=== PATIENT | female | born 1965 | race Hispanic/Latino ===

== ENCOUNTER 2017-03-21 08:30 | Observation (INO) | payer OTHER ==
[2017-03-21] MEDS ORDERED: Sodium Chloride 0.9% 1,000 ML IV ONE (09:29)
[2017-03-21 09:49] LABS: BASO % 0.3 % (0.0-2.0); HEMOGLOBIN 15.4 g/dL (12.0-16.0); LYMPH # 0.9 K/uL (1.0-4.3); LYMPH % 7.7 % (20.0-40.0); MEAN CELL VOLUME 95.6 fl (81.0-99.0); MEAN CORPUSCULAR HEMOGLOBIN 32.9 pg (27.0-31.0); MEAN CORPUSCULAR HGB CONC 34.4 g/dL (33.0-37.0); MEAN PLATELET VOLUME 7.1 fl (7.2-11.7); MONO # 0.3 K/uL (0.0-0.8); MONO % 2.4 % (0.0-10.0); NEUT # 10.9 K/uL (1.8-7.0); NEUT % 89.6 % (50.0-75.0); NRBC % 0.1 % (0.0-0.0); PLATELET COUNT 222 K/uL (130-400); RBC 4.69 Mil/uL (3.80-5.20); RED CELL DISTRIBUTION WIDTH 12.7 % (11.5-14.5); WHITE BLOOD COUNT 12.1 K/uL (4.8-10.8)
[2017-03-21 10:08] LABS: ACETAMINOPHEN < 10.0 ug/ml (10.0-30.0); ALBUMIN 5.2 g/dL (3.5-5.0); ALT/SGPT 97 U/L (9-52); AST/SGOT 42 U/L (14-36); BLOOD UREA NITROGEN 17 mg/dl (7-17); CALCIUM 9.6 mg/dL (8.4-10.2); GFR AFRICAN-AMERICAN > 60; GFR NON-AFRICAN AMERICAN > 60; MAGNESIUM 2.8 MG/DL (1.6-2.3); SALICYLATE < 1.0 mg/dl
[2017-03-21 10:11] LABS: ALB/GLOB RATIO 1.6 (1.0-2.1)
[2017-03-21 10:47] LABS: SQUAMOUS EPITHIAL < 1 /hpf (0-5); URINE BILIRUBIN NEGATIVE (NEGATIVE); URINE BLOOD NEGATIVE (NEGATIVE); URINE CLARITY SLIGHTY-CLOUDY (Clear); URINE COLOR YELLOW (YELLOW); URINE GLUCOSE (UA) NEG (Normal); URINE LEUKOCYTE ESTERASE TRACE Leu/uL (Negative); URINE NITRATE NEGATIVE (NEGATIVE); URINE PROTEIN NEGATIVE (NEGATIVE); URINE UROBILINOGEN 0.2-1.0 mg/dL (0.2-1.0)
[2017-03-21 11:03] LABS: BARBITURATES, UR NEGATIVE (NEGATIVE); OPIATES, UR NEGATIVE (NEGATIVE); PHENCYCLIDINE, UR NEGATIVE (NEGATIVE)
--- NOTE | 2017-03-21 11:03 | CT ---
PROCEDURE: CT HEAD WITHOUT CONTRAST. HISTORY: trauma COMPARISON: None available. TECHNIQUE: Axial computed tomography images were obtained through the head/brain without intravenous contrast. Radiation dose: Total exam DLP = 873.81 mGy-cm. This CT exam was performed using one or more of the following dose reduction techniques: Automated exposure control, adjustment of the mA and/or kV according to patient size, and/or use of iterative reconstruction technique. FINDINGS: HEMORRHAGE: No intracranial hemorrhage. BRAIN: No mass effect or edema. No atrophy or chronic microvascular ischemic changes. VENTRICLES: Unremarkable. No hydrocephalus. CALVARIUM: Unremarkable. PARANASAL SINUSES: Mild chronic pansinusitis. MASTOID AIR CELLS: Unremarkable as visualized. No inflammatory changes. OTHER FINDINGS: None. IMPRESSION: No intracranial hemorrhage. Mild chronic pansinusitis. The remainder of the examination is unremarkable.
[2017-03-21 11:04] LABS: BENZODIAZEPINES, UR POSITIVE (NEGATIVE)
--- NOTE | 2017-03-21 11:10 | ED PDOC ---
HPI: Psych/Substance Abuse Time Seen by Provider: 03/21/17 08:41 Chief Complaint (Nursing): Psychiatric Evaluation History Per: Patient History/Exam Limitations: intoxication Onset/Duration Of Symptoms: Sudden Onset (last night) Current Symptoms Are (Timing): Still Present Suicide/Self Injury Attempted (Context): Ingestion (multiple doses or prozac and valium) Modifying Factor(s): Alcohol Severity: Moderate Associated Symptoms: Depression, Suicidal Thoughts, Suicidal Plan (od). denies : Anger, Anxiety, Agitation, Paranoia Involuntary Hold By: Emergency Physician Additional History Per: Patient Additional Complaint(s): Pt states she took overdose of several meds with alcohol last night. Pt admits to suicidal attempt. Pt states she fell last night, bruises noted on rt forehead and lt elbow. Past Medical History Reviewed: Historical Data, Nursing Documentation, Vital Signs Vital Signs: Last Vital Signs Temp 97 F L 03/21/17 08:39 Pulse 73 03/21/17 10:57 Resp 16 03/21/17 10:57 BP 121/67 03/21/17 10:57 Pulse Ox 98 03/21/17 10:57 - Medical History PMH: No Chronic Diseases - Surgical History Surgical History: No Surg Hx - Family History Family History: States: Unknown Family Hx - Living Arrangements Living Arrangements: With Family - Social History Current smoker - smoking cessation education provided: No Alcohol: > 2 Drinks/Day Drugs: Denies - Allergies Allergies/Adverse Reactions: Allergies Allergy/AdvReac Type Severity Reaction Status Date / Time Penicillins Allergy RASH Verified 03/21/17 08:38 Review of Systems ROS Statement: Except As Marked, All Systems Reviewed And Found Negative Constitutional: Negative for: Fever, Chills Cardiovascular: Negative for: Chest Pain, Palpitations Respiratory: Negative for: Cough, Shortness of Breath Gastrointestinal: Negative for: Nausea, Vomiting, Abdominal Pain Musculoskeletal: Negative for: Neck Pain Neurological: Negative for: Weakness, Numbness Physical Exam - Reviewed Nursing Documentation Reviewed: Yes Vital Signs Reviewed: Yes - Physical Exam Appears: Positive for: Uncomfortable Head Exam: Positive for: ATRAUMATIC, NORMAL INSPECTION, NORMOCEPHALIC Eye Exam: Positive for: Normal appearance, EOMI, PERRL Neck: Positive for: Normal, Painless ROM, Supple Cardiovascular/Chest: Positive for: Regular Rate, Rhythm, Chest Non Tender. Negative for: Edema, Gallop, Murmur, Bradycardia, Tachycardia Respiratory: Positive for: Normal Breath Sounds. Negative for: Decreased Breath Sounds, Accessory Muscle Use, Crackles, Rhonchi, Stridor, Wheezing Pulses-Dorsalis Pedis (L): 2+ Pulses-Dorsalis Pedis (R): 2+ Pulses-Post. Tibialis (L): 2+ Pulses-Post. Tibialis (R): 2+ Pulses-Radial (L): 2+ Pulses-Radial (R): 2+ Gastrointestinal/Abdominal: Positive for: Normal Exam, Bowel Sounds, Soft. Negative for: Tenderness Back: Positive for: Normal Inspection. Negative for: L CVA Tenderness, R CVA Tenderness Extremity: Positive for: Normal ROM. Negative for: Tenderness, Pedal Edema Neurologic/Psych: Positive for: Alert, analysis or research safety inspector II-XII, Oriented. Negative for: Motor/Sensory Deficits - Laboratory Results Result Diagrams: 03/21/17 09:43 03/21/17 09:43 - ECG ECG: Positive for: Interpreted By Id ECG Rhythm: Positive for: Normal QRS, Normal ST Segment, Sinus Rhythm. Negative for: ST/T Changes Interpretation Of Abn EKG: rate of 73 prolonged qt O2 Sat by Pulse Oximetry: 98 Pulse Ox Interpretation: Normal - Radiology X-Ray: Interpreted by Id X-Ray Interpretation: No Acute Disease - Progress ED Course And Treament: will admit for prolonged qt Re-evaluation Time: 13:00 Condition: Improving,but remains with symptoms Disposition - Clinical Impression Clinical Impression: Overdose of antidepressant, Prolonged Q-T interval on ECG - Patient ED Disposition Is Patient to be Admitted: Yes Counseled Patient/Family Regarding: Studies Performed, Diagnosis - Disposition Disposition: Routine/Home Disposition Time: 13:00 Condition: STABLE Forms: Extend Labs (Mozambican) - Pt Status Changed To: Hospital Disposition Of: Observation - POA Present On Arrival: None
[2017-03-21 12:13] LABS: LYMPHOCYTE 6 % (20-50); MONOCYTE 2 % (0-10); NEUTROPHIL 92 % (42-75); PLATELET ESTIMATE NORMAL (NORMAL); TOTAL CELLS COUNTED 100
--- NOTE | 2017-03-21 13:55 | RAD ---
PROCEDURE: Right Knee Radiographs. HISTORY: COMPARISON: None available. FINDINGS: Rotated lateral view. BONES: No acute displaced fracture. JOINTS: No dislocation. Mild degenerative changes. JOINT EFFUSION: No significant joint effusion. OTHER FINDINGS: None. IMPRESSION: No acute displaced fracture, dislocation, or significant joint effusion identified. If symptoms persist, or if there is continued clinical concern, x-ray follow-up in 7-10 days should be considered.
--- NOTE | 2017-03-21 14:10 | CARD ---
APPROVED REPORT EKG Measurement Heart [id number] ID [id number] <Conclusion> Normal sinus rhythm Prolonged QT Abnormal ECG
--- NOTE | 2017-03-21 14:47 | RAD ---
PROCEDURE: Radiographs of the left elbow. HISTORY: trauma COMPARISON: No prior. FINDINGS: BONES: Normal. No fracture. JOINTS: Normal. No osteoarthritis. SOFT TISSUES: Normal. JOINT EFFUSION: None. OTHER FINDINGS: None IMPRESSION: Unremarkable radiographs of the left elbow.
--- NOTE | 2017-03-21 14:54 | RAD ---
PROCEDURE: CHEST RADIOGRAPH, 1 VIEW HISTORY: od COMPARISON: None available. FINDINGS: LUNGS: Clear. PLEURA: No pneumothorax or pleural fluid seen. CARDIOVASCULAR: Normal. OSSEOUS STRUCTURES: No significant abnormalities. VISUALIZED UPPER ABDOMEN: Normal. OTHER FINDINGS: None. IMPRESSION: No active disease.
[2017-03-21] MEDS: Sodium Chloride 0.9% 1,000 ML IV SCH (21:25)
[2017-03-21] MEDS: Oxycodone/Acetaminophen 5/325 mg Tab PO PRN (22:20)
[2017-03-22] MEDS ORDERED: Levothyroxine 150 MCG TAB PO SCH (06:30)
[2017-03-22 06:35] LABS: BASO # 0.1 K/uL (0.0-0.2); BASO % 0.8 % (0.0-2.0); EOS # 0.3 K/uL (0.0-0.7); EOS % 4.1 % (0.0-4.0); HEMOGLOBIN 12.1 g/dL (12.0-16.0); LYMPH # 2.2 K/uL (1.0-4.3); LYMPH % 34.4 % (20.0-40.0); MEAN CELL VOLUME 97.4 fl (81.0-99.0); MEAN CORPUSCULAR HEMOGLOBIN 33.4 pg (27.0-31.0); MEAN CORPUSCULAR HGB CONC 34.2 g/dL (33.0-37.0); MEAN PLATELET VOLUME 6.9 fl (7.2-11.7); MONO # 0.3 K/uL (0.0-0.8); MONO % 4.8 % (0.0-10.0); NEUT # 3.7 K/uL (1.8-7.0); NEUT % 55.9 % (50.0-75.0); NRBC % 0.1 % (0.0-0.0); RBC 3.64 Mil/uL (3.80-5.20); RED CELL DISTRIBUTION WIDTH 13.2 % (11.5-14.5); WHITE BLOOD COUNT 6.5 K/uL (4.8-10.8)
[2017-03-22 07:00] LABS: ALB/GLOB RATIO 1.4 (1.0-2.1); ALBUMIN 3.5 g/dL (3.5-5.0); ALT/SGPT 76 U/L (9-52); AST/SGOT 43 U/L (14-36); BLOOD UREA NITROGEN 19 mg/dl (7-17); CALCIUM 8.5 mg/dL (8.4-10.2); GFR AFRICAN-AMERICAN > 60; GFR NON-AFRICAN AMERICAN > 60
[2017-03-22] MEDS: Sodium Chloride 0.9% 1,000 ML IV SCH ×2 (07:06→16:37)
[2017-03-22] MEDS: Oxycodone/Acetaminophen 5/325 mg Tab PO PRN (07:08)
[2017-03-22] MEDS ORDERED: Magnesium Oxide 400 mg Tab UD PO SCH (09:00)
[2017-03-22] MEDS ORDERED: Oxycodone/Acetaminophen 5/325 mg Tab PO ONE (11:53)
--- NOTE | 2017-03-22 12:48 | CP.PCM.CON ---
History of Present Illness - History of Present Illness History of Present Illness: pt with previous psychiatric diagnosis of depression, no hx of previous psychiatric hospitalizations, has been increasingly depressed past three years for job difficulties, was place by private psychiatrist on diazepam for anxiety and insomnia and prozac for depression pt was having conflicts with her , they broke up three days ago, became increasingly depressed and on the day of evaluation she overdosed on diazepam and prozac with intent to end her life, pt was brought to hospital on evaluation pt was reporting she is upset she is alive, continues to be irritable and anxious denied psychotic and manic symptoms Past Patient History - Past Medical History & Family History Past Medical History?: Yes - Past Social History Smoking Status: Current Some Days Smoker - CARDIAC Hx Cardiac Disorders: No - PULMONARY Hx Respiratory Disorders: No - NEUROLOGICAL Hx Neurological Disorder: No - HEENT Hx HEENT Problems: No - RENAL Hx Chronic Kidney Disease: No - ENDOCRINE/METABOLIC Hx Endocrine Disorders: No - HEMATOLOGICAL/ONCOLOGICAL Hx Blood Disorders: No Hx AIDS: No Hx Human Immunodeficiency Virus (HIV): No - INTEGUMENTARY Hx Dermatological Problems: No - MUSCULOSKELETAL/RHEUMATOLOGICAL Hx Musculoskeletal Disorders: No Hx Falls: Yes - GASTROINTESTINAL Hx Gastrointestinal Disorders: No - GENITOURINARY/GYNECOLOGICAL Hx Genitourinary Disorders: No - PSYCHIATRIC Hx Psychophysiologic Disorder: Yes Hx Depression: Yes Hx Substance Use: No - SURGICAL HISTORY Hx Surgeries: No - ANESTHESIA Hx Anesthesia: Yes Hx Anesthesia Reactions: No Hx Malignant Hyperthermia: No Has any member of the family had a problem w/ anesthesia?: Yes Meds Home Medications: Home Medication List Medication Instructions Recorded Confirmed Type Acetaminophen [Tylenol 325mg tab] 650 mg PO Q6 PRN tab 03/22/17 Rx Docusate [Colace] 100 mg PO BID cap 03/22/17 Rx Thiamine [Vitamin B1 Tab] 100 mg PO DAILY tab 03/22/17 Rx diaZEpam [Valium] 5 mg PO BID tab 03/22/17 Rx oxyCODONE/Acetaminophen [Percocet 2 tab PO Q6 PRN tab 03/22/17 Rx 5/325 mg Tab] traMADol [Ultram] 50 mg PO Q6 PRN tab 03/22/17 Rx Allergies/Adverse Reactions: Allergies Allergy/AdvReac Type Severity Reaction Status Date / Time Penicillins Allergy RASH Verified 03/21/17 08:38 - Medications Medications: Current Medications Acetaminophen (Tylenol 325mg Tab) 650 mg PO Q6 PRN PRN Reason: Pain, Mild (1-3) Last Admin: 03/22/17 01:24 Dose: 650 mg Diazepam (Valium) 5 mg PO BID [facility] Last Admin: 03/22/17 09:53 Dose: Not Given Docusate Sodium (Colace) 100 mg PO BID [facility] Sodium Chloride (Sodium Chloride 0.9%) 1,000 mls @ 100 mls/hr IV .Q10H [facility] Stop: 03/22/17 20:02 Last Admin: 03/22/17 07:06 Dose: 100 mls/hr Levothyroxine Sodium (Synthroid) 150 mcg PO DAILY@0630 [facility] Last Admin: 03/22/17 07:06 Dose: 150 mcg Magnesium Oxide (Mag-Ox) 400 mg PO DAILY [facility] Last Admin: 03/22/17 09:54 Dose: 400 mg Oxycodone/Acetaminophen (Percocet 5/325 Mg Tab) 2 tab PO Q6 PRN PRN Reason: Pain, severe (8-10) Stop: 03/24/17 22:08 Last Admin: 03/22/17 07:08 Dose: 2 tab Thiamine HCl (Vitamin B1 Tab) 100 mg PO DAILY [facility] Last Admin: 03/22/17 09:53 Dose: 100 mg Tramadol HCl (Ultram) 50 mg PO Q6 PRN PRN Reason: Pain, moderate (4-7) Last Admin: 03/21/17 21:24 Dose: 50 mg Physical Exam - Psychiatric Exam Additional comments: pt seen in bed , anxious mood and affect, speech loud thought form coherent reporting passive suicidal ideations, wishing she was not alive without a plan , denied perceptual disturbances, non elicited alert awake, oriented to person and place and time, poor impulse control, poor judgment and fair insight Results - Vital Signs Recent Vital Signs: Last Vital Signs Temp 97.6 F 03/22/17 12:14 Pulse 53 L 03/22/17 12:14 Resp 18 03/22/17 12:14 BP 109/71 03/22/17 12:14 Pulse Ox 96 03/22/17 12:14 - Labs Result Diagrams: 03/22/17 05:24 03/22/17 05:24 Labs: Laboratory Results - last 24 hr 03/22/17 03/22/17 05:24 05:24 WBC 6.5 RBC 3.64 L Hgb 12.1 D Hct 35.4 MCV 97.4 MCH 33.4 H MCHC 34.2 RDW 13.2 Plt Count 163 MPV 6.9 L Neut % (Auto) 55.9 Lymph % (Auto) 34.4 [place] % (Auto) 4.8 Eos % (Auto) 4.1 H Baso % (Auto) 0.8 Neut # 3.7 Lymph # 2.2 [place] # 0.3 Eos # 0.3 Baso # 0.1 Sodium 140 Potassium 4.1 Chloride 108 H Carbon Dioxide 25 Anion Gap 11 BUN 19 H Creatinine 0.9 Est GFR ( Amer) > 60 Est GFR (Non-Af Amer) > 60 Random Glucose 86 Calcium 8.5 Total Bilirubin 0.3 AST 43 H ALT 76 H D Alkaline Phosphatase 61 Total Protein 6.0 L Albumin 3.5 D Globulin 2.5 Albumin/Globulin Ratio 1.4 Vitamin B12 980 H TSH 3rd Generation 0.90 Assessment & Plan - Assessment and Plan (Free Text) Assessment: major depression recurrent severe without psychotic features generalized anxiety disorder benzodiazepine dependence Plan: start klonopin 0.5mg tid start prozac 20mg daily start trazdone 50mg qhs continue 1:1 for safety pt agreed to be admitted voluntary to psychiatry for stabilization transfer pt to psychiatry upon medical clearence
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
--- NOTE | 2017-03-22 17:47 | CARD ---
APPROVED REPORT EKG Measurement Heart [id number] <Conclusion> Normal sinus rhythm Normal ECG
[2017-03-22 22:24] VITALS: PULSE 57
[2017-03-22 22:29] VITALS: BP 104/63; RESP 18; TEMP 97.8; O2SAT 98
--- NOTE | 2017-03-23 11:54 | CP.PCM.DIS ---
Provider - Provider Date of Admission: 03/21/17 14:49 Attending physician: Tia Boyer MD Time Spent in preparation of Discharge (in minutes): 20 Diagnosis - Discharge Diagnosis (1) Overdose of antidepressant Status: Acute (2) Chronic pain syndrome Status: Chronic Priority: Medium Hospital Course - Lab Results Lab Results: Most Recent Lab Values WBC 6.5 K/uL (4.8-10.8) 03/22/17 05:24 RBC 3.64 Mil/uL (3.80-5.20) L 03/22/17 05:24 Hgb 12.1 g/dL (12.0-16.0) D 03/22/17 05:24 Hct 35.4 % (34.0-47.0) 03/22/17 05:24 MCV 97.4 fl (81.0-99.0) 03/22/17 05:24 MCH 33.4 pg (27.0-31.0) H 03/22/17 05:24 MCHC 34.2 g/dL (33.0-37.0) 03/22/17 05:24 RDW 13.2 % (11.5-14.5) 03/22/17 05:24 Plt Count 163 K/uL (130-400) 03/22/17 05:24 MPV 6.9 fl (7.2-11.7) L 03/22/17 05:24 Neut % (Auto) 55.9 % (50.0-75.0) 03/22/17 05:24 Lymph % (Auto) 34.4 % (20.0-40.0) 03/22/17 05:24 Tyrrell % (Auto) 4.8 % (0.0-10.0) 03/22/17 05:24 Eos % (Auto) 4.1 % (0.0-4.0) H 03/22/17 05:24 Baso % (Auto) 0.8 % (0.0-2.0) 03/22/17 05:24 Neut # 3.7 K/uL (1.8-7.0) 03/22/17 05:24 Lymph # 2.2 K/uL (1.0-4.3) 03/22/17 05:24 Tyrrell # 0.3 K/uL (0.0-0.8) 03/22/17 05:24 Eos # 0.3 K/uL (0.0-0.7) 03/22/17 05:24 Baso # 0.1 K/uL (0.0-0.2) 03/22/17 05:24 Neutrophils % (Manual) 92 % (42-75) H 03/21/17 09:43 Lymphocytes % (Manual) 6 % (20-50) L 03/21/17 09:43 Monocytes % (Manual) 2 % (0-10) 03/21/17 09:43 Platelet Estimate Normal (NORMAL) 03/21/17 09:43 RBC Morphology Normal (NORMAL) 03/21/17 09:43 Sodium 140 mmol/l (132-148) 03/22/17 05:24 Potassium 4.1 MMOL/L (3.6-5.0) 03/22/17 05:24 Chloride 108 mmol/L (98-107) H 03/22/17 05:24 Carbon Dioxide 25 mmol/L (22-30) 03/22/17 05:24 Anion Gap 11 (10-20) 03/22/17 05:24 BUN 19 mg/dl (7-17) H 03/22/17 05:24 Creatinine 0.9 mg/dl (0.7-1.2) 03/22/17 05:24 Est GFR ( Amer) > 60 03/22/17 05:24 Est GFR (Non-Af Amer) > 60 03/22/17 05:24 POC Glucose (mg/dL) 67 mg/dL (65-110) 03/21/17 08:46 Random Glucose 86 mg/dL (65-105) 03/22/17 05:24 Calcium 8.5 mg/dL (8.4-10.2) 03/22/17 05:24 Magnesium 2.8 MG/DL (1.6-2.3) H 03/21/17 09:43 Total Bilirubin 0.3 mg/dl (0.2-1.3) 03/22/17 05:24 AST 43 U/L (14-36) H 03/22/17 05:24 ALT 76 U/L (9-52) H D 03/22/17 05:24 Alkaline Phosphatase 61 U/L (38-126) 03/22/17 05:24 Total Creatine Kinase 183 U/L (30-135) H 03/21/17 09:43 Total Protein 6.0 G/DL (6.3-8.2) L 03/22/17 05:24 Albumin 3.5 g/dL (3.5-5.0) D 03/22/17 05:24 Globulin 2.5 gm/dL (2.2-3.9) 03/22/17 05:24 Albumin/Globulin Ratio 1.4 (1.0-2.1) 03/22/17 05:24 Vitamin B12 980 pg/mL (239-931) H 03/22/17 05:24 TSH 3rd Generation 0.90 mIU/ML (0.46-4.68) 03/22/17 05:24 Urine Color Yellow (YELLOW) 03/21/17 10:35 Urine Clarity Slighty-cloudy (Clear) 03/21/17 10:35 Urine pH 6.0 (5.0-8.0) 03/21/17 10:35 Ur Specific [place] 1.013 (1.003-1.030) 03/21/17 10:35 Urine Protein Negative mg/dL (NEGATIVE) 03/21/17 10:35 Urine Glucose (UA) Neg mg/dL (Normal) 03/21/17 10:35 Urine Ketones Trace mg/dL (NEGATIVE) 03/21/17 10:35 Urine Blood Negative (NEGATIVE) 03/21/17 10:35 Urine Nitrate Negative (NEGATIVE) 03/21/17 10:35 Urine Bilirubin Negative (NEGATIVE) 03/21/17 10:35 Urine Urobilinogen 0.2-1.0 mg/dL (0.2-1.0) 03/21/17 10:35 Ur Leukocyte Esterase Trace Ramy/uL (Negative) 03/21/17 10:35 Urine RBC (Auto) < 1 /hpf (0-3) 03/21/17 10:35 Urine Microscopic WBC 1 /hpf (0-5) 03/21/17 10:35 Ur Squamous Epith Cells < 1 /hpf (0-5) 03/21/17 10:35 Ur Transition Epith Cell 1 /hpf (0-3) 03/21/17 10:35 Salicylates < 1.0 mg/dl 03/21/17 09:43 Urine Opiates Screen Negative (NEGATIVE) 03/21/17 10:35 Urine Methadone Screen Negative (NEGATIVE) 03/21/17 10:35 Acetaminophen < 10.0 ug/ml (10.0-30.0) L 03/21/17 09:43 Ur Barbiturates Screen Negative (NEGATIVE) 03/21/17 10:35 Ur Phencyclidine Scrn Negative (NEGATIVE) 03/21/17 10:35 Ur Amphetamines Screen Negative (NEGATIVE) 03/21/17 10:35 U Benzodiazepines Scrn Positive (NEGATIVE) 03/21/17 10:35 U Oth Cocaine Metabols Negative (NEGATIVE) 03/21/17 10:35 U Cannabinoids Screen Negative (NEGATIVE) 03/21/17 10:35 Alcohol, Quantitative 89 mg/dl (0-10) H 03/21/17 09:43 Discharge Exam - Head Exam Head Exam: ATRAUMATIC, NORMAL INSPECTION, NORMOCEPHALIC Discharge Plan - Follow Up Plan Condition: GUARDED Disposition: DISCH TO PSYCH HOSP PLAN READ Additional Instructions: Activity as tolerated. Regular diet.Suicidal precaution Referrals: Geo Gomez MD [Medical Doctor] - Tia Boyer MD [Staff Provider] -
== END 2017-03-22 23:15 ==
LOC: H.ER 08:30 → H.ERHOLD 14:49 → H.TEL 18:48
PROVIDERS: ADMIT Internal Medicine; ATTEND Internal Medicine
DX: T43.222A Poisoning by selective serotonin reuptake inhibitors, intentional self-harm, initial encounter (principal); T42.4X2A Poisoning by benzodiazepines, intentional self-harm, initial encounter; I45.81 Long QT syndrome; Z88.0 Allergy status to penicillin; F64.9 Gender identity disorder, unspecified; F17.200 Nicotine dependence, unspecified, uncomplicated; E03.9 Hypothyroidism, unspecified; G47.00 Insomnia, unspecified; F41.1 Generalized anxiety disorder; G89.4 Chronic pain syndrome; F33.2 Major depressive disorder, recurrent severe without psychotic features; F13.20 Sedative, hypnotic or anxiolytic dependence, uncomplicated; S00.83XA Contusion of other part of head, initial encounter; S50.02XA Contusion of left elbow, initial encounter; W18.30XA Fall on same level, unspecified, initial encounter
CPT/HCPCS: 36415; 70450; 71045; 73080; 73562; 80053; 80320; 80324; 80329; 80345; 80346; 80349; 80353; 80358; 80361; 81003; 82550; 82607; 82948; 83735; 83992; 84443; 85025; 93005; 99285; G0378; J1630; J2060; J7040

== ENCOUNTER 2017-03-22 18:44 | Inpatient (IN) | payer OTHER ==
[2017-03-22 23:29] VITALS: BMI 25.7
[2017-03-23] MEDS ORDERED: DiphenhydrAMINE 50 mg/ml Inj IM PRN (00:57)
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
[2017-03-23 09:20] LABS: T4 7.74 ug/dl (5.5-11.0)
[2017-03-23] MEDS ORDERED: Oxycodone/Acetaminophen 5/325 mg Tab PO PRN (14:37)
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
[2017-03-23] MEDS: Levothyroxine 150 MCG TAB PO SCH (15:38)
[2017-03-24] MEDS: Levothyroxine 150 MCG TAB PO SCH (07:50)
--- NOTE | 2017-03-24 14:52 | PCM.PYCHPN ---
Psychiatric Progress Note - Psychiatric Progress Note Patient seen today, length of contact: pt seen and evaluated Patient Chief Complaint: pt still feels depressiped and anxious and wants to switch lexapro to prozac 10 mg daily as they were taking it before. pt had a good visit with the partner. Problems Identified/Issues Discussed: depression,anxiety Medication Change: Yes Medical Record Reviewed: Yes Mental Status Examination - Cognitive Function Orientation: Person, Place, Situation, Time Memory: Intact Attention: Poor Concentration: Poor Association: WNL Fund of Knowledge: WNL - Mood Mood: Depressed, Anxious - Suicidal Ideation Suicidal Ideation: No - Homicidal Ideation Homicidal Ideation: No Goal/Treatment Plan - Goal/Treatment Plan Progress Toward Problem(s) and Goals/Treatment Plan: pt has agreed to increase neurontin to 200 mg bid and d/c lexapro and start prozac 10 mg daily and engage pt in therapy and groups.
--- NOTE | 2017-03-24 21:07 | CP.PCM.PN ---
Subjective - Date & Time of Evaluation Date of Evaluation: 03/24/17 Time of Evaluation: 14:10 - Subjective Subjective: Seen and examined at the bed side. Continue Constipation. Continue to be depressed, and still suicidal. Objective - Vital Signs/Intake and Output Vital Signs (last 24 hours): Temp Pulse Resp BP Pulse Ox 97.9 F 64 18 110/72 03/24/17 17:00 03/24/17 17:00 03/24/17 17:00 03/24/17 17:00 - Medications Medications: Current Medications Acetaminophen (Tylenol 325mg Tab) 650 mg PO Q4 PRN PRN Reason: Pain, Mild (1-3) Al Hydrox/Mg Hydrox/Simethicone (Maalox Plus 30 Ml) 30 ml PO Q4 PRN PRN Reason: Dyspepsia Diphenhydramine HCl (Benadryl) 50 mg IM Q6 PRN PRN Reason: Extrapyramidal S/S Unable PO Diphenhydramine HCl (Benadryl) 50 mg PO Q6 PRN PRN Reason: Extrapyramidal Symptoms Last Admin: 03/23/17 03:03 Dose: 50 mg Fluoxetine HCl (Prozac) 10 mg PO DAILY [facility] Gabapentin (Neurontin) 200 mg PO BID [facility] Last Admin: 03/24/17 17:28 Dose: 200 mg Haloperidol (Haldol) 5 mg PO Q4 PRN PRN Reason: Agitation Last Admin: 03/23/17 03:03 Dose: 5 mg Haloperidol Lactate (Haldol) 5 mg IM Q4 PRN PRN Reason: Agitation, Unable to Take PO Ibuprofen (Motrin Tab) 400 mg PO Q6 PRN PRN Reason: Pain, moderate (4-7) Last Admin: 03/24/17 11:21 Dose: 400 mg Lactulose (Enulose) 20 gm PO BID [facility] Last Admin: 03/24/17 17:27 Dose: 20 gm Levothyroxine Sodium (Synthroid) 150 mcg PO DAILY@0630 [facility] Last Admin: 03/24/17 07:50 Dose: 150 mcg Lorazepam (Ativan) 2 mg IM Q4 PRN PRN Reason: Anxiety/Agitation,Unable PO Lorazepam (Ativan) 2 mg PO Q4 PRN PRN Reason: Anxiety/Agitation Last Admin: 03/23/17 17:32 Dose: 2 mg Magnesium Hydroxide (Milk Of Magnesia) 30 ml PO HS PRN PRN Reason: Constipation Oxycodone/Acetaminophen (Percocet 5/325 Mg Tab) 2 tab PO Q6 PRN PRN Reason: Pain, severe (8-10) Stop: 03/26/17 14:38 Last Admin: 03/24/17 15:29 Dose: 2 tab Trazodone HCl (Desyrel) 100 mg PO HS [facility] - Constitutional Appears: Well, No Acute Distress - Head Exam Head Exam: ATRAUMATIC, NORMAL INSPECTION, NORMOCEPHALIC - Eye Exam Eye Exam: EOMI, Normal appearance, PERRL Pupil Exam: NORMAL ACCOMODATION, PERRL - ENT Exam ENT Exam: Mucous Membranes Moist, Normal Exam - Neck Exam Neck Exam: Full ROM, Normal Inspection. absent: Lymphadenopathy - Respiratory Exam Respiratory Exam: Clear to Ausculation Bilateral, NORMAL BREATHING PATTERN - Cardiovascular Exam Cardiovascular Exam: REGULAR RHYTHM, +S1, +S2. absent: Murmur - GI/Abdominal Exam GI & Abdominal Exam: Soft, Normal Bowel Sounds. absent: Tenderness - Extremities Exam Extremities Exam: Full ROM, Normal Capillary Refill, Normal Inspection. absent : Joint Swelling, Pedal Edema - Back Exam Back Exam: NORMAL INSPECTION - Neurological Exam Neurological Exam: Alert, Awake, CN II-XII Intact, Normal Gait, Oriented x3 - Psychiatric Exam Psychiatric exam: Normal Affect, Normal Mood - Skin Skin Exam: Dry, Intact, Normal Color, Warm Assessment and Plan (1) Constipation Assessment & Plan: Lactulose 30cc BID Advised High Fiber Diet Status: Acute Priority: Medium (2) Depression Assessment and Plan: Suicide Attempt with overdose Rx with Psych Status: Acute (3) Overdose of antidepressant Assessment and Plan: Resolved Status: Acute (4) Prolonged Q-T interval on ECG Assessment and Plan: Resolved Status: Acute (5) Chronic pain syndrome Assessment and Plan: Percocet 5/325mg q6hrs PRN Status: Chronic Priority: Medium (6) Hypothyroidism Assessment and Plan: Continued Levothyroxine 125mcg daily TSH Status: Chronic
[2017-03-25] MEDS: Levothyroxine 150 MCG TAB PO SCH (11:31)
--- NOTE | 2017-03-25 14:36 | PCM.PYCHPN ---
Psychiatric Progress Note - Psychiatric Progress Note Patient seen today, length of contact: pt seen and evaluated Patient Chief Complaint: I had the mood swings for a long time Problems Identified/Issues Discussed: pt on evaluation, more cooperative, less irritable, interacting with other patients and attending groups pt reported having mood swings with episodes of depression alternating with episodes of irritability or hypomani and spending sprees discussed with pt starting seroquel for mood stabilization, pt agreed reported early insomnia, no changes in appetite denied any current suicidal or homicidal ideations denied perceptual disturbances DSM 5 Symptoms Update: bipolar disorder mixed Medication Change: Yes (start seroquel) Medical Record Reviewed: Yes Mental Status Examination - Cognitive Function Orientation: Person, Place, Situation, Time Attention: WNL Concentration: WNL Association: WNL Fund of Knowledge: WN Decription of patient's judgement and insights: fair insight and judment, poorr impulse control - Mood Mood: Depressed, Anxious - Affect Affect: Constricted - Speech Speech: Appropriate - Formal Thought Process Formal Thought Process: No Impairment, Circumstantial Psychotic Thoughts and Behaviors: grandiose delusions - Suicidal Ideation Suicidal Ideation: No - Homicidal Ideation Homicidal Ideation: No Goal/Treatment Plan - Goal/Treatment Plan Need for Continued Stay: Severe depression anxiety, Discharge may exacerbated symptoms Progress Toward Problem(s) and Goals/Treatment Plan: discontinue 1:1 pt denied at current mental status any suicidal or homicidal ideations start seroquel 100mg qhs with plan to uptitrate monitor pt for psychopharmacological effects and side effect profile group and supportive therapy Estimated Date of D/C: 03/29/17
[2017-03-25 16:40] VITALS: RESP 18
[2017-03-25] MEDS: Magnesium Hydroxide Susp 30 ml UD PO PRN (21:58)
--- NOTE | 2017-03-25 23:55 | CP.PCM.PN ---
Subjective - Date & Time of Evaluation Date of Evaluation: 03/25/17 Time of Evaluation: 14:25 - Subjective Subjective: Continue to complain constipation despite Lactulose. States feeling better. + Insomnia. Objective - Vital Signs/Intake and Output Vital Signs (last 24 hours): Temp Pulse Resp BP Pulse Ox 97.7 F 63 18 103/53 L 03/25/17 16:39 03/25/17 16:39 03/25/17 16:39 03/25/17 16:39 - Medications Medications: Current Medications Acetaminophen (Tylenol 325mg Tab) 650 mg PO Q4 PRN PRN Reason: Pain, Mild (1-3) Al Hydrox/Mg Hydrox/Simethicone (Maalox Plus 30 Ml) 30 ml PO Q4 PRN PRN Reason: Dyspepsia Diphenhydramine HCl (Benadryl) 50 mg IM Q6 PRN PRN Reason: Extrapyramidal S/S Unable PO Diphenhydramine HCl (Benadryl) 50 mg PO Q6 PRN PRN Reason: Extrapyramidal Symptoms Last Admin: 03/25/17 04:34 Dose: 50 mg Gabapentin (Neurontin) 100 mg PO TID [facility] Last Admin: 03/25/17 17:17 Dose: 100 mg Haloperidol (Haldol) 5 mg PO Q4 PRN PRN Reason: Agitation Last Admin: 03/25/17 04:34 Dose: 5 mg Haloperidol Lactate (Haldol) 5 mg IM Q4 PRN PRN Reason: Agitation, Unable to Take PO Ibuprofen (Motrin Tab) 400 mg PO Q6 PRN PRN Reason: Pain, moderate (4-7) Last Admin: 03/24/17 11:21 Dose: 400 mg Lactulose (Enulose) 20 gm PO BID [facility] Last Admin: 03/25/17 09:39 Dose: 20 gm Levothyroxine Sodium (Synthroid) 150 mcg PO DAILY@0630 [facility] Last Admin: 03/25/17 11:31 Dose: 150 mcg Lorazepam (Ativan) 1 mg PO TID PRN PRN Reason: Anxiety Magnesium Hydroxide (Milk Of Magnesia) 30 ml PO HS PRN PRN Reason: Constipation Last Admin: 03/25/17 21:58 Dose: 30 ml Oxycodone/Acetaminophen (Percocet 5/325 Mg Tab) 2 tab PO Q6 PRN PRN Reason: Pain, severe (8-10) Stop: 03/26/17 14:38 Last Admin: 03/24/17 15:29 Dose: 2 tab Quetiapine Fumarate (Seroquel) 100 mg PO HS [facility] Last Admin: 03/25/17 21:58 Dose: 100 mg - Constitutional Appears: Well, No Acute Distress - Head Exam Head Exam: ATRAUMATIC, NORMAL INSPECTION, NORMOCEPHALIC - Eye Exam Eye Exam: EOMI, Normal appearance, PERRL Pupil Exam: NORMAL ACCOMODATION, PERRL - ENT Exam ENT Exam: Mucous Membranes Moist, Normal Exam - Neck Exam Neck Exam: Full ROM, Normal Inspection. absent: Lymphadenopathy - Respiratory Exam Respiratory Exam: Clear to Ausculation Bilateral, NORMAL BREATHING PATTERN - Cardiovascular Exam Cardiovascular Exam: REGULAR RHYTHM, +S1, +S2. absent: Murmur - GI/Abdominal Exam GI & Abdominal Exam: Soft, Normal Bowel Sounds. absent: Tenderness - Extremities Exam Extremities Exam: Full ROM, Normal Capillary Refill, Normal Inspection. absent : Joint Swelling, Pedal Edema - Back Exam Back Exam: NORMAL INSPECTION - Neurological Exam Neurological Exam: Alert, Awake, CN II-XII Intact, Normal Gait, Oriented x3 - Psychiatric Exam Psychiatric exam: Depressed. absent: Suicidal Ideation - Skin Skin Exam: Dry, Intact, Normal Color, Warm Assessment and Plan (1) Constipation Assessment & Plan: Lactulose 30cc BID Fleet Enema BID Advised High Fiber Diet Status: Acute Priority: Medium (2) Depression, Suicide Attempt by drug overdose Assessment and Plan: Suicide Attempt with overdose Rx with Psych Status: Acute (3) Overdose of antidepressant Assessment and Plan: Resolved Status: Acute (4) Prolonged Q-T interval on ECG- Resolved Assessment and Plan: Resolved Status: Acute (5) Chronic pain syndrome Assessment and Plan: Percocet 5/325mg q6hrs PRN Status: Chronic Priority: Medium (6) Hypothyroidism Assessment and Plan: Continued Levothyroxine 125mcg daily Status: Chronic
[2017-03-26] MEDS: Levothyroxine 150 MCG TAB PO SCH (06:39)
--- NOTE | 2017-03-26 12:56 | PCM.PYCHPN ---
Psychiatric Progress Note - Psychiatric Progress Note Patient seen today, length of contact: pt seen and evaluated Patient Chief Complaint: I feel very depressed because I feel like I lost my purpose Problems Identified/Issues Discussed: pt on evaluation, reported continues to have poor sleep with seroquel, stated continues to feel anxious and depressed about the current conflict between her and her feeling remorseful and sad for loosing her job pt stated passive suicidal thoughts, without a plan on the unit relates that to her worries about the future discussed with pt restarting prozac as antidepressant and abilify as mood stabilizer pt denied any current manic symptoms , denied perceptual disturbances DSM 5 Symptoms Update: depression rule out bipolar disorder depressed Medication Change: Yes (start abilify) Medical Record Reviewed: Yes Mental Status Examination - Cognitive Function Orientation: Person, Place, Situation, Time Attention: WNL Concentration: WNL Association: WNL Fund of Knowledge: [facility] Decription of patient's judgement and insights: fair insight and judment, poorr impulse control - Mood Mood: Depressed, Anxious - Affect Affect: Constricted - Speech Speech: Appropriate - Formal Thought Process Formal Thought Process: No Impairment, Circumstantial Psychotic Thoughts and Behaviors: pt denied psychotic symptoms, non elicited - Suicidal Ideation Suicidal Ideation: No - Homicidal Ideation Homicidal Ideation: No Goal/Treatment Plan - Goal/Treatment Plan Need for Continued Stay: Severe depression anxiety, Discharge may exacerbated symptoms Progress Toward Problem(s) and Goals/Treatment Plan: discontinue seroquel, start abilfy 5mg with plan to uptitrate start prozac 10mg monitor pt for psychopharmacological effects and side effect profile group and supportive therapy Estimated Date of D/C: 03/29/17
--- NOTE | 2017-03-27 00:51 | CP.PCM.PN ---
Subjective - Date & Time of Evaluation Date of Evaluation: 03/26/17 Time of Evaluation: 15:05 - Subjective Subjective: Seen and examined at the bed side. Continue to be constipated. Denies abdominal pain, swelling or Vomiting. Objective - Vital Signs/Intake and Output Vital Signs (last 24 hours): Temp Pulse Resp BP Pulse Ox 97.7 F 65 18 109/68 03/26/17 17:00 03/26/17 17:00 03/26/17 17:00 03/26/17 17:00 - Medications Medications: Current Medications Acetaminophen (Tylenol 325mg Tab) 650 mg PO Q4 PRN PRN Reason: Pain, Mild (1-3) Last Admin: 03/26/17 17:26 Dose: 650 mg Al Hydrox/Mg Hydrox/Simethicone (Maalox Plus 30 Ml) 30 ml PO Q4 PRN PRN Reason: Dyspepsia Aripiprazole (Abilify) 5 mg PO DAILY [facility] Last Admin: 03/26/17 13:24 Dose: 5 mg Diphenhydramine HCl (Benadryl) 50 mg IM Q6 PRN PRN Reason: Extrapyramidal S/S Unable PO Diphenhydramine HCl (Benadryl) 50 mg PO Q6 PRN PRN Reason: Extrapyramidal Symptoms Last Admin: 03/25/17 04:34 Dose: 50 mg Fluoxetine HCl (Prozac) 10 mg PO DAILY [facility] Last Admin: 03/26/17 13:25 Dose: 10 mg Gabapentin (Neurontin) 100 mg PO TID [facility] Last Admin: 03/26/17 17:22 Dose: 100 mg Haloperidol (Haldol) 5 mg PO Q4 PRN PRN Reason: Agitation Last Admin: 03/25/17 04:34 Dose: 5 mg Haloperidol Lactate (Haldol) 5 mg IM Q4 PRN PRN Reason: Agitation, Unable to Take PO Ibuprofen (Motrin Tab) 400 mg PO Q6 PRN PRN Reason: Pain, moderate (4-7) Last Admin: 03/24/17 11:21 Dose: 400 mg Lactulose (Enulose) 20 gm PO BID [facility] Last Admin: 03/26/17 17:20 Dose: 20 gm Levothyroxine Sodium (Synthroid) 150 mcg PO DAILY@0630 [facility] Last Admin: 03/26/17 06:39 Dose: 150 mcg Lorazepam (Ativan) 1 mg PO TID PRN PRN Reason: Anxiety Magnesium Hydroxide (Milk Of Magnesia) 30 ml PO HS PRN PRN Reason: Constipation Last Admin: 03/25/17 21:58 Dose: 30 ml Trazodone HCl (Desyrel) 100 mg PO HS [facility] Last Admin: 03/26/17 21:11 Dose: 100 mg - Constitutional Appears: Well, No Acute Distress - Head Exam Head Exam: ATRAUMATIC, NORMAL INSPECTION, NORMOCEPHALIC - Eye Exam Eye Exam: EOMI, Normal appearance, PERRL Pupil Exam: NORMAL ACCOMODATION, PERRL - ENT Exam ENT Exam: Mucous Membranes Moist, Normal Exam - Neck Exam Neck Exam: Full ROM, Normal Inspection. absent: Lymphadenopathy - Respiratory Exam Respiratory Exam: Clear to Ausculation Bilateral, NORMAL BREATHING PATTERN - Cardiovascular Exam Cardiovascular Exam: REGULAR RHYTHM, +S1, +S2. absent: Murmur - GI/Abdominal Exam GI & Abdominal Exam: Soft, Normal Bowel Sounds. absent: Tenderness - Extremities Exam Extremities Exam: Full ROM, Normal Capillary Refill, Normal Inspection. absent : Joint Swelling, Pedal Edema - Back Exam Back Exam: NORMAL INSPECTION - Neurological Exam Neurological Exam: Alert, Awake, CN II-XII Intact, Normal Gait, Oriented x3 - Psychiatric Exam Psychiatric exam: Normal Affect, Normal Mood - Skin Skin Exam: Dry, Intact, Normal Color, Warm Assessment and Plan (1) Constipation Assessment & Plan: Lactulose 30cc BID Repeat Fleet Eneema X2 more Sennakot Plus Advised High Fiber Diet Status: Acute Priority: Medium (2) Depression Assessment and Plan: Suicide Attempt with overdose Rx with Psych Status: Acute (3) Overdose of antidepressant Assessment and Plan: Resolved Status: Acute (4) Prolonged Q-T interval on ECG- resolved Assessment and Plan: Resolved Status: Acute (5) Chronic pain syndrome Assessment and Plan: Percocet 5/325mg q6hrs PRN Status: Chronic Priority: Medium (6) Hypothyroidism Assessment and Plan: Continued Levothyroxine 125mcg daily Status: Chronic
[2017-03-27] MEDS: Levothyroxine 150 MCG TAB PO SCH (06:15)
--- NOTE | 2017-03-27 13:42 | PCM.PYCHPN ---
Psychiatric Progress Note - Psychiatric Progress Note Patient seen today, length of contact: pt seen and evaluated Patient Chief Complaint: I am feeling better with the abilify Problems Identified/Issues Discussed: pt seen on the unit, appears less anxious and less depressed, pt reported better mood, no reported side effects of abilify, compliant with treatment , attending groups pt denied any current suicidal or homicidal ideations, denied perceptual disturbances DSM 5 Symptoms Update: bipolar disorder mixed borderline personality traits Medication Change: Yes (increase abilify) Medical Record Reviewed: Yes Mental Status Examination - Cognitive Function Orientation: Person, Place, Situation, Time Attention: WNL Concentration: WNL Association: [facility] Fund of Knowledge: [facility] Decription of patient's judgement and insights: fair insight and judment, poorr impulse control - Mood Mood: Anxious - Affect Affect: Constricted - Speech Speech: Appropriate - Formal Thought Process Formal Thought Process: Circumstantial Psychotic Thoughts and Behaviors: pt denied psychotic symptoms, non elicited - Suicidal Ideation Suicidal Ideation: No - Homicidal Ideation Homicidal Ideation: No Goal/Treatment Plan - Goal/Treatment Plan Need for Continued Stay: Severe depression anxiety, Discharge may exacerbated symptoms Progress Toward Problem(s) and Goals/Treatment Plan: increase abilify to 10mg, discontinue prozac monitor pt for psychopharmacological effects and side effect profile group and supportive therapy Estimated Date of D/C: 03/29/17
[2017-03-27] MEDS: Magnesium Hydroxide Susp 30 ml UD PO PRN (19:18)
--- NOTE | 2017-03-27 20:43 | CP.PCM.PN ---
Subjective - Date & Time of Evaluation Date of Evaluation: 03/27/17 Time of Evaluation: 11:05 - Subjective Subjective: Seen and examined .Continue to complain constipation despite lactulose and Fleet Eneema use. Objective - Vital Signs/Intake and Output Vital Signs (last 24 hours): Temp Pulse Resp BP Pulse Ox 97.2 F L 63 18 124/78 03/27/17 17:00 03/27/17 17:00 03/27/17 17:00 03/27/17 17:00 - Medications Medications: Current Medications Acetaminophen (Tylenol 325mg Tab) 650 mg PO Q4 PRN PRN Reason: Pain, Mild (1-3) Last Admin: 03/26/17 17:26 Dose: 650 mg Al Hydrox/Mg Hydrox/Simethicone (Maalox Plus 30 Ml) 30 ml PO Q4 PRN PRN Reason: Dyspepsia Aripiprazole (Abilify) 5 mg PO DAILY [facility] Last Admin: 03/27/17 09:39 Dose: 5 mg Aripiprazole (Abilify) [address] [facility] Diphenhydramine HCl (Benadryl) 50 mg IM Q6 PRN PRN Reason: Extrapyramidal S/S Unable PO Diphenhydramine HCl (Benadryl) 50 mg PO Q6 PRN PRN Reason: Extrapyramidal Symptoms Last Admin: 03/25/17 04:34 Dose: 50 mg Gabapentin (Neurontin) 100 mg PO TID [facility] Last Admin: 03/27/17 17:26 Dose: 100 mg Haloperidol (Haldol) 5 mg PO Q4 PRN PRN Reason: Agitation Last Admin: 03/25/17 04:34 Dose: 5 mg Haloperidol Lactate (Haldol) 5 mg IM Q4 PRN PRN Reason: Agitation, Unable to Take PO Ibuprofen (Motrin Tab) 400 mg PO Q6 PRN PRN Reason: Pain, moderate (4-7) Last Admin: 03/24/17 11:21 Dose: 400 mg Lactulose (Enulose) 20 gm PO BID [facility] Last Admin: 03/27/17 17:32 Dose: 20 gm Levothyroxine Sodium (Synthroid) 150 mcg PO DAILY@0630 [facility] Last Admin: 03/27/17 06:15 Dose: 150 mcg Lorazepam (Ativan) 1 mg PO TID PRN PRN Reason: Anxiety Magnesium Hydroxide (Milk Of Magnesia) 30 ml PO HS PRN PRN Reason: Constipation Last Admin: 03/27/17 19:18 Dose: 30 ml Senna/Docusate Sodium (Senokot S 50 Mg-8.6 Mg) 2 tab PO HS [facility] Trazodone HCl (Desyrel) 100 mg PO HS [facility] Last Admin: 03/26/17 21:11 Dose: 100 mg - Constitutional Appears: Well, No Acute Distress - Head Exam Head Exam: ATRAUMATIC, NORMAL INSPECTION, NORMOCEPHALIC - Eye Exam Eye Exam: EOMI, Normal appearance, PERRL Pupil Exam: NORMAL ACCOMODATION, PERRL - ENT Exam ENT Exam: Mucous Membranes Moist, Normal Exam - Neck Exam Neck Exam: Full ROM, Normal Inspection. absent: Lymphadenopathy - Respiratory Exam Respiratory Exam: Clear to Ausculation Bilateral, NORMAL BREATHING PATTERN - Cardiovascular Exam Cardiovascular Exam: REGULAR RHYTHM, +S1, +S2. absent: Murmur - GI/Abdominal Exam GI & Abdominal Exam: Soft, Normal Bowel Sounds. absent: Tenderness Additional comments: scar - Extremities Exam Extremities Exam: Full ROM, Normal Capillary Refill, Normal Inspection. absent : Joint Swelling, Pedal Edema - Back Exam Back Exam: NORMAL INSPECTION - Neurological Exam Neurological Exam: Alert, Awake, CN II-XII Intact, Normal Gait, Oriented x3 - Psychiatric Exam Psychiatric exam: Normal Affect, Normal Mood - Skin Skin Exam: Dry, Intact, Normal Color, Warm Assessment and Plan (1) Constipation Assessment & Plan: Lactulose 30cc BID Sennakot Plus Advised High Fiber Diet Status: Acute Priority: Medium (2) Depression Assessment and Plan: Suicide Attempt with overdose Rx with Psych Status: Acute (3) Overdose of antidepressant- Resolved Assessment and Plan: Resolved Status: Acute (4) Prolonged Q-T interval on ECG- resolved Assessment and Plan: Resolved Status: Acute (5) Chronic pain syndrome Assessment and Plan: Percocet 5/325mg q6hrs PRN Status: Chronic Priority: Medium (6) Hypothyroidism Assessment and Plan: Continued Levothyroxine 125mcg daily Status: Chronic
[2017-03-27] MEDS: Alum-Mag Hydrox-Simethicone Susp (30 mL) PO PRN (21:13)
[2017-03-27] MEDS: Docusate-Senna 50 mg-8.6 mg Tab PO SCH (21:14)
[2017-03-28] MEDS: Levothyroxine 150 MCG TAB PO SCH (08:52)
--- NOTE | 2017-03-28 12:30 | PCM.PYCHPN ---
Psychiatric Progress Note - Psychiatric Progress Note Patient seen today, length of contact: pt seen and evaluated Patient Chief Complaint: I am not feeling well because I am constipated Problems Identified/Issues Discussed: pt seen on the unit, reported no side effects of abilify, stated her mood is stable, denied any current suicidal or homicidal ideations pt however constipated, following up with primary care at current time CT scan of abdomen requested, will follow up on results DSM 5 Symptoms Update: bipolar disorder borderline personality disorder Medication Change: No Medical Record Reviewed: Yes Mental Status Examination - Cognitive Function Orientation: Person, Place, Situation, Time Attention: WNL Concentration: WNL Association: [facility] Fund of Knowledge: [facility] Decription of patient's judgement and insights: fair insight and judment, poorr impulse control - Mood Mood: Anxious - Affect Affect: Constricted - Speech Speech: Appropriate - Formal Thought Process Formal Thought Process: Circumstantial Psychotic Thoughts and Behaviors: pt denied psychotic symptoms, non elicited - Suicidal Ideation Suicidal Ideation: No - Homicidal Ideation Homicidal Ideation: No Goal/Treatment Plan - Goal/Treatment Plan Need for Continued Stay: Severe depression anxiety, Discharge may exacerbated symptoms Progress Toward Problem(s) and Goals/Treatment Plan: continue abilify 10mg,and trazdone for insomnia monitor pt for psychopharmacological effects and side effect profile group and supportive therapy Estimated Date of D/C: 03/29/17
[2017-03-28] MEDS ORDERED: Iohexol 240 (50 ml) PO ONE (13:22)
--- NOTE | 2017-03-28 16:32 | CT ---
PROCEDURE: CT Abdomen and Pelvis without intravenous contrast HISTORY: rule out constipation COMPARISON: None. TECHNIQUE: Without contrast.. Contrast Dose: 0 Radiation dose: Total exam DLP = 502.17 mGy-cm. This CT exam was performed using one or more of the following dose reduction techniques: Automated exposure control, adjustment of the mA and/or kV according to patient size, and/or use of iterative reconstruction technique. FINDINGS: LOWER THORAX: Unremarkable. LIVER: Unremarkable. No gross lesion or ductal dilatation. GALLBLADDER AND BILE DUCTS: Unremarkable. PANCREAS: Unremarkable. No gross lesion or ductal dilatation. SPLEEN: Unremarkable. ADRENALS: Unremarkable. No mass. KIDNEYS AND URETERS: Unremarkable. No hydronephrosis. No solid mass. VASCULATURE: Unremarkable. No aortic aneurysm. BOWEL: Moderate retained feces. No evidence of bowel obstruction. APPENDIX: Surgical changes of cecum consistent with prior appendectomy. PERITONEUM: Unremarkable. No free fluid. No free air. LYMPH NODES: Unremarkable. No enlarged lymph nodes. Additional minor findings as above. BLADDER: Unremarkable. REPRODUCTIVE: Unremarkable uterus BONES: No acute fracture. 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 OTHER FINDINGS: None. IMPRESSION: No acute abnormality. Retained feces.
[2017-03-28] MEDS: Magnesium Hydroxide Susp 30 ml UD PO PRN (18:19)
[2017-03-28] MEDS ORDERED: Oxycodone/Acetaminophen 5/325 mg Tab PO PRN (18:44)
[2017-03-28] MEDS ORDERED: Peg-Electrolyte Oral Soln 4L (Golytely) PO ONE (19:00)
[2017-03-28] MEDS: Docusate-Senna 50 mg-8.6 mg Tab PO SCH (21:37)
--- NOTE | 2017-03-28 22:45 | CP.PCM.PN ---
Subjective - Date & Time of Evaluation Date of Evaluation: 03/28/17 Time of Evaluation: 22:45 Objective - Vital Signs/Intake and Output Vital Signs (last 24 hours): Temp Pulse Resp BP Pulse Ox 97.0 F L 56 L 18 125/70 03/28/17 16:06 03/28/17 16:06 03/28/17 16:06 03/28/17 16:06 - Medications Medications: Current Medications Acetaminophen (Tylenol 325mg Tab) 650 mg PO Q4 PRN PRN Reason: Pain, Mild (1-3) Last Admin: 03/28/17 16:16 Dose: 650 mg Al Hydrox/Mg Hydrox/Simethicone (Maalox Plus 30 Ml) 30 ml PO Q4 PRN PRN Reason: Dyspepsia Last Admin: 03/27/17 21:13 Dose: 30 ml Aripiprazole (Abilify) 5 mg PO DAILY [facility] Last Admin: 03/28/17 08:52 Dose: 5 mg Aripiprazole (Abilify) 5 mg PO HS [facility] Last Admin: 03/28/17 21:38 Dose: 5 mg Diphenhydramine HCl (Benadryl) 50 mg IM Q6 PRN PRN Reason: Extrapyramidal S/S Unable PO Diphenhydramine HCl (Benadryl) 50 mg PO Q6 PRN PRN Reason: Extrapyramidal Symptoms Last Admin: 03/25/17 04:34 Dose: 50 mg Gabapentin (Neurontin) 100 mg PO TID [facility] Last Admin: 03/28/17 16:15 Dose: 100 mg Haloperidol (Haldol) 5 mg PO Q4 PRN PRN Reason: Agitation Last Admin: 03/25/17 04:34 Dose: 5 mg Haloperidol Lactate (Haldol) 5 mg IM Q4 PRN PRN Reason: Agitation, Unable to Take PO Ibuprofen (Motrin Tab) 400 mg PO Q6 PRN PRN Reason: Pain, moderate (4-7) Last Admin: 03/27/17 21:12 Dose: 400 mg Lactulose (Enulose) 20 gm PO BID [facility] Last Admin: 03/28/17 18:25 Dose: Not Given Levothyroxine Sodium (Synthroid) 150 mcg PO DAILY@0630 [facility] Last Admin: 03/28/17 08:52 Dose: 150 mcg Lorazepam (Ativan) 1 mg PO TID PRN PRN Reason: Anxiety Magnesium Hydroxide (Milk Of Magnesia) 30 ml PO HS PRN PRN Reason: Constipation Last Admin: 03/28/17 18:19 Dose: 30 ml Oxycodone/Acetaminophen (Percocet 5/325 Mg Tab) 2 tab PO Q6 PRN PRN Reason: Pain, severe (8-10) Stop: 03/31/17 18:45 Last Admin: 03/28/17 20:03 Dose: 2 tab Senna/Docusate Sodium (Senokot S 50 Mg-8.6 Mg) 2 tab PO HS [facility] Last Admin: 03/28/17 21:37 Dose: 2 tab Trazodone HCl (Desyrel) 100 mg PO HS [facility] Last Admin: 03/28/17 21:37 Dose: 100 mg Assessment and Plan (1) Constipation Status: Chronic
[2017-03-29 00:56] VITALS: BP 137/75; PULSE 63; TEMP 97.8
[2017-03-29] MEDS: Alum-Mag Hydrox-Simethicone Susp (30 mL) PO PRN (06:30)
[2017-03-29] MEDS: Levothyroxine 150 MCG TAB PO SCH (10:33)
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
== END 2017-03-29 14:27 | disposition home or self-care (01) | DRG 885 ==
LOC: H.PSYCH 23:30
PROVIDERS: ADMIT Psychiatry & Neurology Psychiatry; ATTEND Psychiatry & Neurology Psychiatry
PROC: GZHZZZZ Group Psychotherapy (ICD-10-PCS; principal; 2017-03-25)
PROC: GZ51ZZZ Individual Psychotherapy, Behavioral (ICD-10-PCS; 2017-03-25)
DX: F31.60 Bipolar disorder, current episode mixed, unspecified (principal); R56.9 Unspecified convulsions; E05.00 Thyrotoxicosis with diffuse goiter without thyrotoxic crisis or storm; F41.9 Anxiety disorder, unspecified; F60.3 Borderline personality disorder; F64.9 Gender identity disorder, unspecified; G47.00 Insomnia, unspecified; G89.4 Chronic pain syndrome; K59.00 Constipation, unspecified; Z79.899 Other long term (current) drug therapy; Z87.891 Personal history of nicotine dependence; K59.09 Other constipation; E03.9 Hypothyroidism, unspecified; T42.4X2D Poisoning by benzodiazepines, intentional self-harm, subsequent encounter; T43.222D Poisoning by selective serotonin reuptake inhibitors, intentional self-harm, subsequent encounter